=== PATIENT | female | born 1985 | race Caucasian/White ===

== ENCOUNTER 2017-06-11 10:49 | Emergency (ER) | payer MEDICAID ==
[2017-06-11] MEDS: IPRATROPIUM (NEB) 0.5 MG/2.5 ML AMP INH (13:50)
[2017-06-11] MEDS: LEVALBUTEROL (NEB) 1.25 MG/0.5 ML AMP INH ×2 (13:51→15:53)
[2017-06-11] MEDS: DEXAMETHASONE 10 MG/ML 1 ML INJ IM (14:01)
== END 2017-06-11 17:10 | disposition home or self-care (01) ==
LOC: FTE 10:49
DX: R05 Cough (principal); R06.2 Wheezing
CPT/HCPCS: 71045; 94644; 94645; 96372; 99285-25